=== PATIENT | male | born 1995 | race African-American/Black ===

== ENCOUNTER 2018-03-04 21:07 | Emergency (ER) | payer SELFPAY ==
[~2018-03-04] VITALS: Ht 188 cm; Wt 79.5 kg
[2018-03-04 21:16] VITALS: BP 126/74; TEMP 98.7
[2018-03-04 21:51] VITALS: PULSE 71
== END 2018-03-04 21:51 | disposition home or self-care (01) ==
LOC: COL.ER 21:07
DX: S05.01XA Injury of conjunctiva and corneal abrasion without foreign body, right eye, initial encounter (principal); H11.31 Conjunctival hemorrhage, right eye; W22.8XXA Striking against or struck by other objects, initial encounter; Y92.219 Unspecified school as the place of occurrence of the external cause; Y93.67 Activity, basketball